=== PATIENT | male | born 1970 | race African-American/Black ===

== ENCOUNTER → 2016-05-22 | Outpatient (CLI) | payer OTHER ==
[~2016-05-22] MED LIST: ACETAMINOPHEN PO; ALBUTEROL17 GM INH; ALDACTAZIDE PO; ASPIRIN81 MG PO; HYDRALAZINE HCL50 MG PO; K-DUR20 ME1 PO; LASIX PO; LOPRESSOR PO; NORVASC PO; PRINIVIL20 M1 PO; SYMBICORT; ZYRTEC10 M1 PO
== END | disposition home or self-care (01) ==
LOC: CRC 09:44
DX: R06.00 Dyspnea, unspecified (principal)
CPT/HCPCS: 94060; 94726; 94729

== ENCOUNTER → 2016-06-03 | Outpatient (CLI) | payer OTHER ==
--- NOTE | ~2016-06-03 | CR63 ---
[facility] A Service of [facility] & [facility] RADIOLOGY TEXT RESULTS PATIENT: MOHIT JOHANSEN SR LOCATION: [facility] : 68 UNIT #: [id number] AGE: [address]: Delonte Jones MD SEX: M ORDER DR: [id number] [facility] [address] [facility]. [place], [place] [address] [id number] O MR#: [id number] Acc #: [id number] NAME: MOHIT JOHANSEN SR : 1970 SEX: M STUDY DATE/TIME: 06/03/2016 9:06 UNIT: [facility] ROOM: STUDY DESCRIPTION: CR Chest 2 View Attending Physician: Delonte Jones M.D. Referring Physician: Delonte Jones M.D. Ordering Physician: Delonte Jones M.D. Primary Care Physician: Kellie Madsen M.D. MEDICAL IMAGING REPORT This report is preliminary unless electronic signature is present EXAM Chest PA and lateral 06/03/2016 HISTORY Shortness of breath cough and chest congestion for 4 months. Benign essential hypertension, COPD exacerbation. FINDINGS PA and lateral examination of the chest upright shows a good expansion of the parenchyma with a normal distribution of the pulmonary vascularity. There is no indication of congestion, effusion, infiltrate, tumor, or nodular density. The pleural reflections and diaphragmatic contours are normal. The cardiac silhouette and mediastinal anatomy is within normal limits. IMPRESSION Normal chest. Dictated by... Randy Henry M.D. THIS IS AN ELECTRONICALLY VERIFIED REPORT Randy Henry M.D. at 06/04/2016 7:44 AM MEGAN/tami TD: 06/03/2016 10:35 JOB #: [id number] MEDICAL IMAGING REPORT Page 1 of 1 COPY
== END | disposition home or self-care (01) ==
LOC: CRAD 08:20
DX: R06.02 Shortness of breath (principal)
CPT/HCPCS: 71020

== ENCOUNTER 2016-06-09 13:25 | Inpatient (IN) | payer OTHER ==
--- NOTE | ~2016-06-09 | CR72 ---
[facility] A Service of [facility] & [facility] RADIOLOGY TEXT RESULTS PATIENT: MOHIT JOHANSEN SR LOCATION: [facility] 550- : 68 UNIT #: [id number] AGE: [address]: Kellie Madsen MD SEX: M ORDER DR: [id number] [facility] [address] [facility]. [place], [place] [address] [id number] E MR#: [id number] Acc #: [id number] NAME: MOHIT JOHANSEN : 1970 SEX: M STUDY DATE/TIME: 06/09/2016 13:25 UNIT: NITA ROOM: STUDY DESCRIPTION: CR Chest Single View Portable Attending Physician: Carlos Arias D.O. Ordering Physician: Renato Bro M.D. Primary Care Physician: Kellie Madsen M.D. MEDICAL IMAGING REPORT This report is preliminary unless electronic signature is present EXAM Portable chest. HISTORY Shortness of breath and chest congestion since noon today. FINDINGS An AP portable view is obtained. The cardiovascular configuration appears normal and the lungs are clear. CONCLUSION Negative chest. Dictated by... Titi Alegre M.D. THIS IS AN ELECTRONICALLY VERIFIED REPORT Titi Alegre M.D. at 06/10/2016 5:02 PM Eloisa TD: 06/09/2016 14:54 JOB #: [id number] MEDICAL IMAGING REPORT Page 1 of 1 COPY
--- NOTE | ~2016-06-09 | EKG ---
PATIENT: MOHIT JOHANSEN UNIT #: [id number] Ventricular Rate: 70 BPM Atrial Rate: 70 BPM P-R Interval: 184 ms QRS Duration: 112 ms Q-T Interval: 384 ms QTC Calculation(Bezet): 414 ms P [place]: 36 degrees Calculated R [place]: -22 degrees Calculated T [place]: -8 degrees Diagnosis Line: Sinus rhythm with occasional Premature ventricular Diagnosis Line: complexes Diagnosis Line: Otherwise normal ECG Diagnosis Line: When compared with ECG of 10-JUN-2016 09:16, Diagnosis Line: Premature ventricular complexes are now Present Diagnosis Line: QT has shortened Diagnosis Line: Confirmed by SAMMIE PERALES MD ([id number]) on 06/11/2016 Diagnosis Line: 10:18:59 PM INTERPRETING MD: DIAZ GÓMEZ
--- NOTE | ~2016-06-09 | EKG ---
PATIENT: MOHIT JOHANSEN UNIT #: [id number] Ventricular Rate: 92 BPM Atrial Rate: 92 BPM P-R Interval: 166 ms QRS Duration: 106 ms Q-T Interval: 382 ms QTC Calculation(Bezet): 472 ms P [place]: 59 degrees Calculated R [place]: -22 degrees Calculated T [place]: -5 degrees Diagnosis Line: Normal sinus rhythm Diagnosis Line: T wave abnormality, consider lateral ischemia Diagnosis Line: Prolonged QT Diagnosis Line: Abnormal ECG Diagnosis Line: When compared with ECG of 09-JUN-2016 12:59, Diagnosis Line: No significant change was found Diagnosis Line: Confirmed by SAMMIE PERALES MD ([id number]) on 06/10/2016 Diagnosis Line: 11:01:27 PM INTERPRETING MD: DIAZ GÓMEZ
--- NOTE | ~2016-06-09 | CO ---
Unit #: [id number] #: [id number] Patient: MOHIT JOHANSEN SR [address] [place], [place] [address] [id number] I MR#: [id number] NAME: MOHIT JOHANSEN SR ROOM: 550 Age: 45 Sex: M Admission Date: 06/10/2016 : 1970 Attending Physician: Kellie Madsen M.D. Primary Care Physician: Kellie Madsen M.D. CONSULTATION REPORT REASON FOR CONSULTATION Chest pain. HISTORY OF PRESENT ILLNESS This is a 45-year-old male, who is known to Dr. Travis, who has a history of hypertension, hyperlipidemia, and obesity. He had an exercise Cardiolite stress test in 01/2016, where he was found to have left ventricular systolic dysfunction with an ejection fraction of 30% to 35%. He also was noted to have dilated left ventricle. The patient was seen in the office and was started on hydrochlorothiazide and lisinopril. He developed a rash. Both was discontinued and the patient was started on Norvasc and hydralazine. The patient presents to the emergency room with a complaint of chest pain and shortness of breath. He said he has been short of breath for quite some time. On Friday night, he was awakened at 3:00 a.m. with dyspnea requiring him to sit upright. The following day while the patient was at [employer], he developed pain under both ribs that was nonradiating to the neck, arm, or jaw. He had a nonproductive cough. He slept on three pillows the following night. He reports no leg edema or increase in his abdominal girth. He came to the emergency room for evaluation for chest pain. Enzymes have been negative. EKG shows T-wave inversions in the anterolateral leads. He was hypertensive with blood pressure 160/102 mmHg. He was continued on his home dose of metoprolol and hydralazine. He has been hypokalemic with a potassium level of 3.1. BNP 27 with no acute changes on his EKG. He was also noted to have leukocytosis with white count was 20.0 on admission. He has been given IV steroids. Procalcitonin 0.10. PAST MEDICAL HISTORY 1. Exercise Cardiolite stress test, 01/31/2016, shows an ejection fraction of 35% to 40% with no ischemia or infarct, dilated left ventricle. 2. 2D echocardiogram, 03/26/2016, shows an ejection fraction of 40% with trace tricuspid regurgitation. Right ventricular systolic pressure 36 mmHg. 3. Hypertension. 4. Hyperlipidemia. 5. QUIN inhibitor allergy. 6. Obesity. 7. Obstructive sleep apnea. 8. Lifelong nonsmoker. PAST SURGICAL HISTORY 1. Right hand surgery secondary to crush injury. Unit #: [id number] #: [id number] Patient: MOHIT JOHANSEN SR 2. Appendectomy. SOCIAL HISTORY The patient is not employed. He is a lifelong nonsmoker. He is . He denies illicit drug or alcohol use. FAMILY HISTORY Father in his 50s from myocardial infarction. Mother has been told to have heart problems with a heart attack. She also has cancer. ALLERGIES Lisinopril with rash, penicillin, and sulfa. HOME MEDICATIONS Potassium chloride 20 mEq daily, furosemide 40 mg daily, albuterol q.4 hours p.r.n., metoprolol tartrate 200 mg daily, Norvasc 10 mg daily, hydralazine 50 mg b.i.d., spironolactone/hydrochlorothiazide 25 mg daily, Zyrtec 10 mg daily, aspirin 81 mg daily, Symbicort 160/4.5 mcg. REVIEW OF SYSTEMS CONSTITUTIONAL: Negative for fever or chills. Reports no weight gain or weight loss. HEENT: No headache. No vision changes or difficulty with swallowing. No dizziness. CARDIOVASCULAR: Has chest pain as described in the HPI. Denies palpitations. Positive for paroxysmal nocturnal dyspnea with 3-pillow orthopnea. No syncope or near syncope. RESPIRATORY: Positive for dyspnea at rest, worse on exertion. Has a nonproductive cough. No hemoptysis. GASTROINTESTINAL: No abdominal pain, nausea, or vomiting. No constipation. No melena. EXTREMITIES: Negative for lower extremity edema. PHYSICAL EXAMINATION VITAL SIGNS: Blood pressure 144/83, heart rate 88, temperature 98.1, BMI 35. GENERAL: This is a pleasant 45-year-old mildly obese, male, who is in no acute respiratory distress. NEUROLOGIC: He is awake, alert, and oriented. There are no focal weaknesses. NECK: Trachea is midline. No thyromegaly. No lymphadenopathy. No jugular venous distention. HEART: S1 and S2. Heart sounds are normal. No murmurs, rubs, or clicks. Regular rate and rhythm. CHEST: Chest wall is tender in the lower aspect of bilateral chest. LUNGS: Diminished breath sounds without rales, rhonchi, or wheezes. ABDOMEN: Soft and nontender with bowel sounds are present. EXTREMITIES: Without leg edema. DIAGNOSIS STUDIES LABORATORY RESULTS: Glucose of 94, BUN 12, creatinine 1.3, sodium 139, potassium 3.1. CK total 503, MB 16.1, MB index 3.2, troponin less than 0.03 x2. BNP 27. Procalcitonin 0.10. D-dimer 246. White count 36.9, hemoglobin 15.3, hematocrit 46.8, platelet count 473. IMAGING STUDIES: Chest x-ray shows no active disease. CARDIOVASCULAR STUDIES: EKG; normal sinus rhythm with a rate of 92 beats Unit #: [id number] #: [id number] Patient: JOHANSEN SR,TAMARAS per minute with T-wave inversion in V3 to V6. There is left axis deviation. IMPRESSION 1. Dyspnea secondary to chronic obstructive pulmonary disease. 2. Cardiomyopathy with ejection fraction of 30% to 35%. 3. Hypertension. 4. Hyperlipidemia. 5. Obesity. 6. QUIN inhibitor allergy. 7. Rule out coronary artery disease. PLAN 1. Cardiology was consulted for evaluation of chest pain. The chest pain could be secondary to ischemic heart disease. His troponin is negative, however, he does have EKG changes in the anterolateral leads that could be consistent with heart disease. 2. Recommend cardiac catheterization. This has been discussed with the patient and his , and they are agreeable. We will plan for a.m. 3. Continue beta-soniya, Norvasc, and hydralazine. 4. No QUIN inhibitor secondary to allergy. 5. Encourage the patient to exercise for weight loss. 6. We will follow the patient with you. Thank you for allowing us to assist in this patient's care. Dictated by... Ras Molina A.P.R.N. for Josselin Regalado/noman TD: 06/11/2016 06:10 JOB #: [id number] CONSULTATION REPORT Page 1 of 1 X Ras Molina APRN CONSULTATION REPORT
--- NOTE | ~2016-06-09 | EKG ---
PATIENT: MOHIT JOHANSEN UNIT #: [id number] Ventricular Rate: 95 BPM Atrial Rate: 95 BPM P-R Interval: 164 ms QRS Duration: 102 ms Q-T Interval: 378 ms QTC Calculation(Bezet): 475 ms P [place]: 47 degrees Calculated R [place]: -28 degrees Calculated T [place]: 0 degrees Diagnosis Line: Normal sinus rhythm Diagnosis Line: Normal ECG Diagnosis Line: When compared with ECG of 02-JAN-2016 17:32, Diagnosis Line: No significant change was found Diagnosis Line: Confirmed by SAMMIE PERALES MD ([id number]) on 06/09/2016 Diagnosis Line: 4:48:12 PM INTERPRETING MD: DIAZ GÓMEZ
--- NOTE | ~2016-06-09 | DS ---
Unit #: [id number] #: [id number] Patient: MOHIT JOHANSEN SR [id number] [address] [place], [place] [address] [id number] MR#: [id number] NAME: MOHIT JOHANSEN SR ROOM: 550 Age: 45 Sex: M Admission Date: 06/09/2016 : 1970 Discharge Date: 06/13/2016 Attending Physician: Kellie Madsen M.D. Primary Care Physician: Kellie Madsen M.D. DISCHARGE SUMMARY FINAL DIAGNOSES 1. Chest pain. The patient was admitted with chest pain symptoms. Acute myocardial infarction was ruled out. Cardiac catheterization was performed, which showed normal coronaries, but his left ventricular ejection fraction is 45%. The patient was seen by therapeutic support staff. Medications have been adjusted. Beta-soniya, Metoprolol, is being changed to 50 mg twice daily. Patient has appointment with Dr. Travis on December 16 at 12:30 p.m. No driving or heavy lifting for 24 hours. 2. Asthma exacerbation. Patient was seen by Dr. Johnson, and he received Solu-Medrol in the emergency room. The patient is doing well from that aspect. He did complain of shortness of breath on multiple occasions. Pulse oximetry was done, which was 95% on room air. The walking pulse oximetry was done, and even after walking 12 minutes, his pulse oximetry did not drop below 94%. Although the patient was wanting to have home oxygen, he did not get approved for it. 3. Leukocytosis. The patient had leukocytosis during hospitalization. It is trending down slowly. There is no sign of infection. Has been seen by Dr. Johnson. As per Dr. Johnson, it could be secondary to steroids. No need for antibiotic at this time. Continue to watch closely. Complete blood count needs to be repeated in the office in 1 week. 4. Obstructive sleep apnea. The patient does have obstructive sleep apnea. Was started on continuous positive airway pressure with 1 centimeters of water at night by Dr. Johnson. That needs to be continued. 5. Hypertension. Stable. Home medications have been adjusted. 6. Morbid obesity. The patient needs to work on his weight. Diet counselling, exercise counselling done at length. Discussed with the patient's about diet control, too. DISCHARGE MEDICATIONS 1. Ventolin inhaler 1 inhalation q.4 p.r.n. 2. Symbicort 160/4.5 mcg 2 puffs b.i.d. 3. Tylenol 650 q.6 p.r.n. 4. Zyrtec 10 mg daily. 5. Norvasc 10 mg daily. 6. Metoprolol tartrate 50 mg q.12 hours. 7. Lasix 40 mg daily. 8. Hydralazine 50 mg b.i.d. 9. Lisinopril 20 mg daily. 10. Aspirin 81 mg daily. 11. Potassium 20 mEq daily. CONSULTATIONS DURING HOSPITALIZATION 1. Dr. Johnson and Dr. Jones from pulmonary service. 2. Dr. Travis from cardiology service. Unit #: [id number] #: [id number] Patient: MOHIT JOHANSEN SR DIAGNOSTIC STUDIES LAB WORKUP ON DISCHARGE: WBC 18, hemoglobin 15, hematocrit 45.2, platelet count 409. BMP shows sodium 139, potassium 4, chloride 102, BUN 13, creatinine 1.1, magnesium 2.1. BNP on admission was 27 and D-dimer was 246. IMAGING STUDIES DONE DURING HOSPITALIZATION: Chest x-ray, which showed normal chest. PROCEDURES DONE Cardiac cath, which showed normal coronaries with ejection fraction of 45%. PHYSICAL EXAMINATION VITAL SIGNS ON DISCHARGE: Blood pressure 128/83, respiratory rate 20, pulse 94, temperature 98.7. HEENT: Head is normocephalic. Eye movements are normal. RESPIRATORY: Chest has fair air entry. No adventitious sounds. CVS: S1, S2 positive. Regular rhythm. ABDOMEN: Obese, soft. EXTREMITIES: Negative edema. PILLOWCASE SEWER: Patient is awake, alert, oriented x3. No focal neurologic deficits. HOSPITAL COURSE The patient was admitted to the hospital with chest pain. Acute myocardial infarction was ruled out. The patient was seen by Dr. Travis, and cardiac cath was done as above. Patient received IV Solu-Medrol in ER, which was 125 mg, and most likely that increased his WBC count. Solu-Medrol was discontinued. There is no sign of infection. Patient does not need any antibiotic at this time per Dr. Johnson. The patient is stable, is being discharged home. DISCHARGE INSTRUCTIONS 1. Patient is being discharged home in stable condition. 2. I have discussed with the patient and the patient's about plan of care, and also diet counselling has been done at length. 3. Follow up with Dr. Travis on December 16 at 12:30 p.m. 4. No driving or heavy lifting for 24 hours. 5. Follow up with primary care provider in 1 week. 6. Patient will need CBC and BMP to be done in 1 week. Dictated by... Josselin Kramer TD: 06/14/2016 08:47 JOB #: [id number] Unit #: [id number] #: [id number] Patient: MOHIT JOHANSEN SR DISCHARGE SUMMARY Page 1 of 1 X Kellie Madsen MD X DISCHARGE SUMMARY
--- NOTE | ~2016-06-09 | CT16 ---
[facility] A Service of [facility] & [facility] RADIOLOGY TEXT RESULTS PATIENT: MOHIT JOHANSEN SR LOCATION: [facility] 550-01 : [birth year] UNIT #: [id number] AGE: [address]: Kellie Madsen MD SEX: M ORDER DR: [id number] [facility] [address] [facility]. [place], [place] [address] [id number] I MR#: [id number] Acc #: [id number] NAME: MOHIT JOHANSEN : 1970 SEX: M STUDY DATE/TIME: 06/13/2016 12:22 UNIT: [facility] ROOM: [facility] STUDY DESCRIPTION: CT Angio Chest for PE Attending Physician: Kellie Madsen M.D. Ordering Physician: Bhumi Johnson M.D. Primary Care Physician: Kellie Madsen M.D. MEDICAL IMAGING REPORT This report is preliminary unless electronic signature is present EXAM CT angiogram of the chest. INDICATION Continued shortness of air since 06/09/2016. Patient has had congestive heart failure since March 2015. Patient also reports a cough for [address] images were obtained from the thoracic inlet through the dome of the diaphragm following administration of intravenous contrast material. Following this, 3-D reformatted images were obtained. This CT exam was performed with one or more of the following radiation dose reduction techniques: automatic exposure control, adjustment of mA and/or kV according to patient size, and iterative reconstruction. FINDINGS Timing of the contrast bolus is suboptimal; however, no large central pulmonary thromboembolus is seen. Main pulmonary artery is borderline enlarged at 3.2 cm. Proximal descending thoracic aorta is ectatic at 2.9 cm. The distal thoracic aorta tapers to normal caliber. There is no evidence of dissection. Thyroid gland, trachea, and esophagus appear unremarkable. There is no pleural or pericardial effusion. Mediastinal lymph nodes do not appear pathologically enlarged. There is aneurysmal dilatation of the aortic root, measuring up to 4.2 cm. I do question if there is some prominence of the interstitium at the lung bases bilaterally. Bronchitis would be a consideration, given history. I do not see any focal alveolar consolidation to suggest bacterial pneumonia. Images through the upper abdomen do not demonstrate any acute abnormalities. Patient does have some mildly prominent axillary nodes of uncertain clinical significance. They are favored to be reactive. No STS. [facility] A Service of [facility] & [facility] RADIOLOGY TEXT RESULTS PATIENT: MOHIT JOHANSEN SR LOCATION: [facility] 550[facility] : [birth year] UNIT #: [id number] AGE: [address]: Kellie Madsen MD SEX: M ORDER DR: aggressive osseous abnormalities are seen. IMPRESSION 1. No acute pulmonary thromboembolus seen. 2. Borderline enlargement of the main pulmonary artery can be seen in the setting of pulmonary tear hypertension. 3. Aneurysmal dilatation of the aortic root measuring up to 4.2 cm. The patient's ascending thoracic aorta measures within normal size limits, although there is some ectasia of the proximal descending thoracic aorta. 4. I do question if there is some bronchial wall thickening seen at the lung bases bilaterally. This certainly could reflect bronchitis, given history. I do not see any focal alveolar consolidation to suggest bacterial pneumonia. 5. This patient has marked elevation of the right hemidiaphragm. Some elevation of the right hemidiaphragm has been present on the prior studies from January 2016 and November 2015, but it certainly appears much more pronounced on today's study. The exact etiology is uncertain. No obvious mass lesion is seen. This could reflect some phrenic nerve palsy. Dictated by... Silvia Granados M.D. THIS IS AN ELECTRONICALLY VERIFIED REPORT Silvia Granados M.D. at 06/15/2016 2:11 PM AFF/js TD: 06/13/2016 13:20 JOB #: [id number] MEDICAL IMAGING REPORT Page 1 of 1 COPY
--- NOTE | ~2016-06-09 | HP ---
Unit #: [id number] #: [id number] Patient: MOHIT JOHANSEN SR [id number] [address] [place], [place] [address] [id number] MR#: [id number] NAME: MOHIT JOHANSEN ROOM: Age: 45 Sex: M Admission Date: 06/09/2016 : 1970 Attending Physician: Carlos Arias D.O. Primary Care Physician: Kellie Madsen M.D. HISTORY AND PHYSICAL REASON FOR ADMISSION Chest pain and shortness of breath. HISTORY OF PRESENT ILLNESS This is a very pleasant 45-year-old gentleman with a past medical history significant for hypertension and possibly diastolic congestive heart failure, who presented to the emergency room with the sudden onset of chest pain. Patient stated that he had been at his usual health until early this morning when he was at [employer] when he suddenly felt left-sided chest pain that he described as a squeezing pain. It was lasted only for a few minutes and resolved on its own. During that attack, patient felt that he was very short of breath and unable to breathe. He denied any fever, chills, or night sweats. He denied any cough, nausea, vomiting, or diarrhea. Patient denied any recent flu-like symptoms or cold symptoms. Nobody around him has the flu. Patient stated that he saw Dr. Jones recently, and he is supposed to see him again on Friday of this week for mask fitting for sleep study. He is also being evaluated by Dr. Travis, and he was told that he an enlarged heart. Patient has never smoked, but he has a history of asthma and takes Ventolin for it. REVIEW OF SYSTEMS A 12-point review of systems was obtained and was negative except for sudden onset of chest pain and shortness of breath. PAST MEDICAL HISTORY 1. Asthma. 2. Presumed obstructive sleep apnea. 3. Morbid obesity. 4. Hypertension. 5. Questionable diastolic congestive heart failure. I do not have a record of it, but patient mentioned that he has seen Dr. Travis and he was told he had an enlarged heart. PAST SURGICAL HISTORY Appendectomy. FAMILY HISTORY Coronary artery disease and breast cancer. Unit #: [id number] #: [id number] Patient: MOHIT JOHANSEN SR ALLERGIES PENICILLIN AND SULFA. PHYSICAL EXAMINATION GENERAL: Patient is in no acute distress. VITAL SIGNS: Blood pressure 149/101, respiratory rate 23, and O2 saturation 99% on 2 liters nasal cannula. HEENT: Atraumatic, normocephalic. PERRLA. EOMI. NECK: Supple. No JVD. No lymphadenopathy. CHEST: Clear to auscultation bilaterally. HEART: S1 and S2. No murmur, gallops, or rubs. ABDOMEN: Soft, nontender. Bowel sounds are positive. No hepatosplenomegaly. EXTREMITIES: No edema or cyanosis. SKIN: No rashes. CENTRAL NERVOUS SYSTEM: Awake, alert, oriented x3. No focal motor/sensory deficits. DIAGNOSTIC STUDIES LABORATORY: Creatinine 1.3, potassium 3.1, and calcium 8.9. White blood count is 20, hemoglobin 16.2, and platelets 438,000. IMAGING: Chest x-ray is clear with no acute infiltrate. ASSESSMENT 1. Acute chest pain, rule out cardiac etiology. 2. Leukocytosis. 3. Erythrocytosis. 4. Hypertension. 5. Presumed obstructive sleep apnea. 6. Morbid obesity. PLAN 1. Patient will be admitted to a telemetry bed to be observed over the next one to two days. 2. Cardiac enzymes and EKG. 3. Will obtain echocardiogram results if it has been done from Dr. Travis's office. 4. Patient has leukocytosis, but there are no signs, symptoms, or findings consistent with infection or bronchitis. At this point, I will hold on any antibiotics or IV steroids, but I will obtain procalcitonin and repeat CBC in the morning. 5. DuoNeb every 4 hours while awake. 6. DVT prophylaxis. 1. Dictated by Josselin Duque TD: 06/09/2016 19:10 JOB #: [id number] Unit #: [id number] #: [id number] Patient: MOHIT JOHANSEN SR HISTORY AND PHYSICAL Page 1 of 1 X JOSE MANUEL BARON MD HISTORY AND PHYSICAL
--- NOTE | ~2016-06-09 | EKG ---
PATIENT: MOHIT JOHANSEN UNIT #: [id number] Ventricular Rate: 78 BPM Atrial Rate: 78 BPM P-R Interval: 184 ms QRS Duration: 116 ms Q-T Interval: 378 ms QTC Calculation(Bezet): 430 ms P [place]: 46 degrees Calculated R [place]: -40 degrees Calculated T [place]: -14 degrees Diagnosis Line: Normal sinus rhythm Diagnosis Line: Left axis deviation Diagnosis Line: Nonspecific T wave abnormality Diagnosis Line: Abnormal ECG Diagnosis Line: When compared with ECG of 09-JUN-2016 12:59, Diagnosis Line: No significant change was found Diagnosis Line: Confirmed by SAMMIE PERALES MD ([id number]) on 06/10/2016 Diagnosis Line: 11:00:14 PM INTERPRETING MD: DIAZ GÓMEZ
[2016-06-09 14:37] LABS: POC - CKMB 1.3 ng/mL (0.0-7.9); POC - TROPONIN <0.05 ng/mL (<=0.05)
[2016-06-09 14:38] LABS: BASOPHIL# 0.1 X10e3 (0-0.3); BASOPHIL% 0.6 % (0-2.5); EOSINOPHIL# 0.2 X10e3 (0-0.7); EOSINOPHIL% 1.1 % (0.0-7.0); HEMATOCRIT 48.4 % (38.0-50.0); HEMOGLOBIN 16.2 gm/dL (13.0-16.0); LYMPHOCYTE# 3.7 X10e3 (1.0-3.5); LYMPHOCYTE% 18.4 % (17.0-45.0); MEAN CELL VOLUME 89.6 FL (83-96); MEAN CORPUSCULAR HEMOGLOBIN 29.9 PG (28-34); MEAN CORPUSCULAR HGB CONC 33.4 g/dL (30-36); MEAN PLATELET VOLUME 8.2 FL (6.5-11.5); NEUTROPHIL# 14.9 X10e3 (1.5-7.1); NEUTROPHIL% 74.9 % (40-75); PLATELET COUNT 438 X10e3 (140-420); RED BLOOD COUNT 5.41 X10e (3.90-5.60); RED CELL DISTRIBUTION WIDTH 12.4 % (11.0-15.5)
[2016-06-09 14:39] LABS: DIFF IND YES
[2016-06-09 14:53] LABS: PARTIAL THROMBOPLASTIN TIME 27.2 SECONDS (23.5-31.3); PROTHROMBIN TIME (PATIENT) 10.7 SECONDS (9.6-11.5)
[2016-06-09 15:06] LABS: PLATELET ESTIMATE INCREASED (NORMAL); RBC NORMAL YES
[2016-06-09 15:09] LABS: ALBUMIN SERUM 4.2 g/dL (3.5-5.0); BILIRUBIN, DIRECT 0.1 mg/dL (0.0-0.2); BILIRUBIN,INDIRECT 0.9 mg/dL (0.0-0.9); BUN/CREATININE RATIO 9.23; CALCIUM SERUM 8.9 mg/dL (8.4-10.2); CREATININE SERUM 1.3 mg/dL (0.6-1.4); GLOM FILT RATE Estimated 75.9 mL/min (>60); POTASSIUM 3.1 mmol/L (3.5-5.1); PROTEIN TOTAL SERUM 8.1 g/dL (6.0-8.3)
[2016-06-09 16:37] LABS: POC - CKMB 1.4 ng/mL (0.0-7.9)
[2016-06-09 16:38] LABS: POC - TROPONIN <0.05 ng/mL (<=0.05)
[2016-06-09] MEDS ORDERED: K-DUR20 ME1 PO (20:00)
[2016-06-09] MEDS ORDERED: LASIX PO (20:01)
[2016-06-09] MEDS ORDERED: ALBUTEROL17 GM INH (20:02)
[2016-06-09] MEDS ORDERED: LOPRESSOR PO (20:03)
[2016-06-09] MEDS ORDERED: NORVASC PO (20:04)
[2016-06-09] MEDS ORDERED: HYDRALAZINE HCL50 MG PO (20:04)
[2016-06-09] MEDS ORDERED: PRINIVIL20 M1 PO (20:05)
[2016-06-09] MEDS ORDERED: ALDACTAZIDE PO (20:06)
[2016-06-09] MEDS ORDERED: ZYRTEC10 M1 PO (20:06)
[2016-06-09] MEDS ORDERED: ASPIRIN81 MG PO (20:08)
[2016-06-09] MEDS ORDERED: SYMBICORT (20:08)
[2016-06-09 20:14] LABS: POC - CKMB 1.5 ng/mL (0.0-7.9); POC - TROPONIN <0.05 ng/mL (<=0.05)
[2016-06-10 04:50] LABS: %MB 0.8 % (0.0-4.0)
[2016-06-10 09:56] LABS: HEMATOCRIT 46.8 % (38.0-50.0); HEMOGLOBIN 15.3 gm/dL (13.0-16.0); MEAN CELL VOLUME 91.2 FL (83-96); MEAN CORPUSCULAR HEMOGLOBIN 29.8 PG (28-34); MEAN CORPUSCULAR HGB CONC 32.7 g/dL (30-36); MEAN PLATELET VOLUME 8.1 FL (6.5-11.5); RED BLOOD COUNT 5.13 X10e (3.90-5.60); RED CELL DISTRIBUTION WIDTH 12.5 % (11.0-15.5); WHITE BLOOD COUNT 36.9 X10e3 (4.0-10.5)
[2016-06-10 10:45] LABS: %MB 3.2 % (0.0-4.0); MB 16.1 ng/ml
[2016-06-10 14:12] LABS: BUN/CREATININE RATIO 10.83; CALCIUM SERUM 9.2 mg/dL (8.4-10.2); CREATININE SERUM 1.2 mg/dL (0.6-1.4); GLOM FILT RATE Estimated 83.6 mL/min (>60)
[2016-06-10 14:23] LABS: URINE APPEARANCE TURBID; URINE COLOR YELLOW; URINE GLUCOSE NEG (NEG); URINE KETONE TRACE (NEG); URINE LEUKOCYTE ESTERASE NEG (NEG); URINE NITRATE NEG (NEG); URINE PH 5.5 (5-8); URINE PROTEIN NEG (NEG); URINE SPECIFIC GRAVITY 1.031 (1.003-1.035)
[2016-06-10 14:24] LABS: URINE BILIRUBIN NEG (NEG); URINE BLOOD NEG (NEG)
[2016-06-10 14:28] LABS: CULTURE INDICATED? NO
[2016-06-10 17:11] LABS: HEMATOCRIT 46.3 % (38.0-50.0); HEMOGLOBIN 15.2 gm/dL (13.0-16.0); MEAN CELL VOLUME 91.1 FL (83-96); MEAN CORPUSCULAR HGB CONC 32.9 g/dL (30-36); MEAN PLATELET VOLUME 8.3 FL (6.5-11.5); RED BLOOD COUNT 5.08 X10e (3.90-5.60); RED CELL DISTRIBUTION WIDTH 12.7 % (11.0-15.5); WHITE BLOOD COUNT 38.9 X10e3 (4.0-10.5)
[2016-06-10 17:56] LABS: %MB 0.7 % (0.0-4.0); MB 4.6 ng/ml
[2016-06-11 05:55] LABS: HEMATOCRIT 44.9 % (38.0-50.0); HEMOGLOBIN 14.7 gm/dL (13.0-16.0); MEAN CELL VOLUME 91.6 FL (83-96); MEAN CORPUSCULAR HEMOGLOBIN 29.9 PG (28-34); MEAN CORPUSCULAR HGB CONC 32.7 g/dL (30-36); MEAN PLATELET VOLUME 8.2 FL (6.5-11.5); RED BLOOD COUNT 4.9 X10e (3.90-5.60); RED CELL DISTRIBUTION WIDTH 12.4 % (11.0-15.5); WHITE BLOOD COUNT 26.5 X10e3 (4.0-10.5)
[2016-06-11 06:06] LABS: INR 0.9; PARTIAL THROMBOPLASTIN TIME 25.5 SECONDS (23.5-31.3); PROTHROMBIN TIME (PATIENT) 9.9 SECONDS (9.6-11.5)
[2016-06-11 06:44] LABS: BUN/CREATININE RATIO 13.63; CALCIUM SERUM 8.5 mg/dL (8.4-10.2); CREATININE SERUM 1.1 mg/dL (0.6-1.4); GLOM FILT RATE Estimated 92.8 mL/min (>60); MAGNESIUM 2.1 mg/dL (1.6-3.0); POTASSIUM 3.9 mmol/L (3.5-5.1)
[2016-06-11 06:55] LABS: PROCALCITONIN 0.06 NG/ML
[2016-06-12 07:31] LABS: HEMATOCRIT 46.9 % (38.0-50.0); MEAN CELL VOLUME 92.1 FL (83-96); MEAN CORPUSCULAR HEMOGLOBIN 29.6 PG (28-34); MEAN CORPUSCULAR HGB CONC 32.1 g/dL (30-36); MEAN PLATELET VOLUME 8.4 FL (6.5-11.5); RED BLOOD COUNT 5.09 X10e (3.90-5.60); RED CELL DISTRIBUTION WIDTH 12.4 % (11.0-15.5); WHITE BLOOD COUNT 19.2 X10e3 (4.0-10.5)
[2016-06-12 08:11] LABS: BUN/CREATININE RATIO 11.81; CREATININE SERUM 1.1 mg/dL (0.6-1.4); GLOM FILT RATE Estimated 92.8 mL/min (>60); MAGNESIUM 2.1 mg/dL (1.6-3.0)
[2016-06-13 06:29] LABS: HEMATOCRIT 45.2 % (38.0-50.0); MEAN CELL VOLUME 90.9 FL (83-96); MEAN CORPUSCULAR HEMOGLOBIN 30.1 PG (28-34); MEAN CORPUSCULAR HGB CONC 33.1 g/dL (30-36); MEAN PLATELET VOLUME 8.3 FL (6.5-11.5); RED BLOOD COUNT 4.97 X10e (3.90-5.60); RED CELL DISTRIBUTION WIDTH 12.5 % (11.0-15.5)
[2016-06-13] MEDS ORDERED: ACETAMINOPHEN PO (11:28)
== END 2016-06-13 16:21 | disposition home or self-care (01) | DRG 287 ==
LOC: CED 13:25 → CEDOF 18:00 → C5B 06-10 08:57
PROVIDERS: Emergency Medicine; Hospitalist; Internal Medicine Pulmonary Disease; Nurse Practitioner; Physician Assistant Medical
PROC: 4A023N7 Measurement of Cardiac Sampling and Pressure, Left Heart, Percutaneous Approach (ICD-10-PCS; 2016-06-11)
PROC: B211YZZ Fluoroscopy of Multiple Coronary Arteries using Other Contrast (ICD-10-PCS; 2016-06-11)
PROC: B215YZZ Fluoroscopy of Left Heart using Other Contrast (ICD-10-PCS; 2016-06-11)
PROC: B32TYZZ Computerized Tomography (CT Scan) of Left Pulmonary Artery using Other Contrast (ICD-10-PCS; principal; 2016-06-13)
PROC: B32SYZZ Computerized Tomography (CT Scan) of Right Pulmonary Artery using Other Contrast (ICD-10-PCS; 2016-06-13)
DX: R07.9 Chest pain, unspecified (principal); J45.901 Unspecified asthma with (acute) exacerbation; I10 Essential (primary) hypertension; E66.01 Morbid (severe) obesity due to excess calories; D75.1 Secondary polycythemia; E78.5 Hyperlipidemia, unspecified; E87.6 Hypokalemia; G47.33 Obstructive sleep apnea (adult) (pediatric); Z79.82 Long term (current) use of aspirin; Z88.0 Allergy status to penicillin; Z88.2 Allergy status to sulfonamides; Z90.49 Acquired absence of other specified parts of digestive tract; Z68.35 Body mass index [BMI] 35.0-35.9, adult
CPT/HCPCS: 36415; 71010; 71275; 80048; 80076; 81003; 82308; 82550; 82553; 83735; 83880; 84484; 85025; 85027; 85379; 85610; 85730; 93005; 94640; 94660; 94760; 99285; C1769; C1887; C1894; J1644; J1650; J2250; J2930; J3010; Q9967

== ENCOUNTER → 2016-08-22 | Outpatient (CLI) | payer OTHER ==
[2016-08-22 11:03] LABS: HEMATOCRIT 46.6 % (38.0-50.0); HEMOGLOBIN 15.2 gm/dL (13.0-16.0); MEAN CELL VOLUME 90.8 FL (83-96); MEAN CORPUSCULAR HEMOGLOBIN 29.7 PG (28-34); MEAN CORPUSCULAR HGB CONC 32.7 g/dL (30-36); MEAN PLATELET VOLUME 8.1 FL (6.5-11.5); RED BLOOD COUNT 5.13 X10e (3.90-5.60); RED CELL DISTRIBUTION WIDTH 12.5 % (11.0-15.5); WHITE BLOOD COUNT 14.9 X10e3 (4.0-10.5)
== END | disposition home or self-care (01) ==
LOC: CLAB 10:18
PROVIDERS: Pain Medicine Interventional Pain Medicine
DX: E78.5 Hyperlipidemia, unspecified (principal); I10 Essential (primary) hypertension
CPT/HCPCS: 36415; 85027